=== PATIENT | female | born 1960 | race Caucasian/White ===

== ENCOUNTER 2019-10-21 20:07 | Emergency (ER) | payer OTHER, SELFPAY ==
[~2019-10-21] VITALS: Ht 157.5 cm; Wt 90.7 kg
[2019-10-21 20:07] VITALS: BP_SYST 124
--- NOTE | 2019-10-21 20:07 | NUR ---
Patient to ER tent for evaluation. Side rails up.
--- NOTE | 2019-10-21 20:10 | NUR ---
Patient brought in with son. Patient is AOx4 ambulatory coming from home. Complaining of generalized weakness, nausea, body aches and intermittent dry cough x 8 days. Patient reports that was tested on the for COVID 19 and found positive. Pain 08/14. No other complaints/injuries per patient or as noted. Will continue to monitor.
[2019-10-21 20:21] VITALS: BP_SYST 124
--- NOTE | 2019-10-21 20:32 | NUR ---
ER Dr. Aponte at bedside examining patient.
[2019-10-21 21:00] VITALS: BP_SYST 124
--- NOTE | 2019-10-21 21:00 | NUR ---
Patient given written and verbal discharge instructions and verbalizes understanding. ER MD discussed with patient the results and treatment provided. Patient in stable condition. ID arm band removed. Rx of Eric Washington, tylenol and robutissin given. Patient educated on pain management and to follow up with PMD. Pain Scale 0/10 Opportunity for questions provided and answered. Medication side effect fact sheet provided.
--- NOTE | 2019-10-24 10:18 | NUR ---
Patient's COVID-19 "Detected" laboratory test results arrived today. The patient was called to notify, but the call was not answered. A voicemail was left with [facility] contact information. Will be calling again today at a later time. Addendum: 10/24/19 at 1450 by Laureen DOWELL Patient was called again and notified about her "Positive" testing. Verbal and written Home Isolation Instructions were given and patient verbalizes understanding.
== END 2019-10-21 21:00 | disposition home or self-care (01) ==
LOC: EEVIPCON 20:07 → SED 20:07
DX: R05 Cough (principal); Z20.828 Contact with and (suspected) exposure to other viral communicable diseases
CPT/HCPCS: 99283; U0003; C9803-CS